=== PATIENT | male | born 2000 | race American Indian/Alaskan Native ===

== ENCOUNTER 2020-06-28 04:46 | Emergency (ER) | payer OTHER ==
[2020-06-28] MEDS ORDERED: IBUPROFEN 600 MG TAB PO ONE (05:59)
--- NOTE | 2020-06-28 06:03 | Emergency Department Report ---
ED ENT HPI - General Chief complaint: Sore Throat Stated complaint: THROAT PAIN Time Seen by Provider: 06/28/20 05:58 Source: patient Mode of arrival: Ambulatory Limitations: No Limitations - History of Present Illness Initial comments: 19-year-old -[place] male presents to the emergency room complaining of sore throat and difficulty swallowing since yesterday. Patient admits to nausea and headache denies any fever that he is aware of. Patient denies any sick contact. Patient denies any cough no runny nose no chest pain or shortness of breath no vomiting or diarrhea. Patient denies any known drug allergies reported he has a history of seizure and is no longer on medication per his doctor. MD complaint: tooth pain, difficulty swallowing Onset/Timin -: days(s) Location: throat - Related Data Previous Rx's Medication Instructions Recorded Last Taken Type Azithromycin [Zithromax Tri-Jesús] 500 mg PO QDAY 3 Days #3 tablet 06/28/20 Unknown Rx Ibuprofen [Motrin 600 MG tab] 600 mg PO Q8H PRN #15 tablet 06/28/20 Unknown Rx Allergies Allergy/AdvReac Type Severity Reaction Status Date / Time No Known Allergies Allergy Unverified 06/28/20 05:01 ED Dental HPI - General Chief complaint: Sore Throat Stated complaint: THROAT PAIN Time Seen by Provider: 06/28/20 05:58 Source: patient Mode of arrival: Ambulatory Limitations: No Limitations - Related Data Previous Rx's Medication Instructions Recorded Last Taken Type Azithromycin [Zithromax Tri-Jesús] 500 mg PO QDAY 3 Days #3 tablet 06/28/20 Unknown Rx Ibuprofen [Motrin 600 MG tab] 600 mg PO Q8H PRN #15 tablet 06/28/20 Unknown Rx Allergies Allergy/AdvReac Type Severity Reaction Status Date / Time No Known Allergies Allergy Unverified 06/28/20 05:01 ED Review of Systems ROS: Stated complaint: THROAT PAIN Other details as noted in HPI Comment: All other systems reviewed and negative ED Past Medical Hx - Past Medical History Previous Medical History?: Yes Hx Seizures: Yes - Surgical History Past Surgical History?: No - Social History Smoking Status: Current Every Day Smoker Substance Use Type: Marijuana - Medications Home Medications: Home Medications Medication Instructions Recorded Confirmed Last Taken Type Azithromycin [Zithromax Tri-Jesús] 500 mg PO QDAY 3 Days #3 tablet 06/28/20 Unknown Rx Ibuprofen [Motrin 600 MG tab] 600 mg PO Q8H PRN #15 tablet 06/28/20 Unknown Rx ED Physical Exam - General Limitations: No Limitations ED Course Vital Signs 06/28/20 04:53 Temperature 99.6 F Pulse Rate 122 H Respiratory 19 Rate Blood Pressure 140/79 O2 Sat by Pulse 98 Oximetry ED Medical Decision Making - Medical Decision Making 19-year-old -[place] male presents to the emergency room complaining of sore throat and difficulty swallowing since yesterday. Patient admits to nausea and headache denies any fever that he is aware of. Patient denies any sick contact. Patient denies any cough no runny nose no chest pain or shortness of breath no vomiting or diarrhea. Patient denies any known drug allergies reported he has a history of seizure and is no longer on medication per his doctor. Patient will be given ibuprofen 600 mg for fever and pain control. Patient be discharged home on Zithromax 500 mg p.o. daily x3 days. Patient is instructed to continue with Tylenol ibuprofen for pain management increase his fluid intake advance his diet as tolerated. Centor criteria 4 points 51% - 53% likelihood of strep Consider rapid strep testing and/or culture. Empiric antibiotics may be appropriate depending on the specific scenario. Critical care attestation.: If time is entered above; I have spent that time in minutes in the direct care of this critically ill patient, excluding procedure time. ED Disposition Clinical Impression: Strep pharyngitis Disposition: DC-01 TO HOME OR SELFCARE Is pt being admited?: No Does the pt Need Aspirin: No Condition: Stable Instructions: Pharyngitis, [id number] Additional Instructions: Please complete antibiotics as prescribed. Pain medication as needed. Increase your fluid intake advance your diet as tolerated. Prescriptions: Ibuprofen [Motrin 600 MG tab] 600 mg PO Q8H PRN #15 tablet PRN Reason: Pain , Severe (7-10) Azithromycin [Zithromax Tri-Jesús] 500 mg PO QDAY 3 Days #3 tablet Referrals: SILAS RUIZ MD [Primary Care Provider] - 3-5 Days Forms: Work/School Release Form(ED)
[2020-06-28] MEDS ORDERED: ACETAMINOPHEN 325 MG TAB PO ONE (06:51)
[2020-06-28 07:29] VITALS: BP 120/86
== END 2020-06-28 07:50 | disposition home or self-care (01) ==
LOC: ED 04:46
DX: J02.0 Streptococcal pharyngitis (principal); F17.200 Nicotine dependence, unspecified, uncomplicated; F12.90 Cannabis use, unspecified, uncomplicated; Z79.899 Other long term (current) drug therapy; Z86.69 Personal history of other diseases of the nervous system and sense organs